=== PATIENT | male | born 1985 | race Caucasian/White ===

== ENCOUNTER → 2023-11-11 09:20 | Outpatient (CLI) | payer MEDICAID, SELFPAY ==
[2023-11-11 11:26] LABS: Hematocrit 43.5 % (41-53); Hemoglobin 14.7 g/dL (13.5-17.5); Mean Corpuscular HGB Conc 33.7 % (30-36); Mean Corpuscular Volume 80.3 fL (80-100); Platelet Count 300 X10^3/uL (150-400); Red Blood Cell Count 5.43 X10^6/uL (4.5-5.9); Red Cell Distribution Width 14.4 % (11.6-14.8); White Blood Cell Count 9.9 X10^3/uL (4.5-11.0)
[2023-11-11 11:27] LABS: Alanine Aminotransferase 28 IU/L (<50); Albumin 4.9 g/dL (3.5-5.0); Albumin Globulin Ratio 1.8 (1.0-2.8); Alkaline Phosphatase 94 U/L (38-126); Aspartate Aminotransferase 28 IU/L (17-59); Bilirubin Total 0.9 mg/dL (0.2-1.3); Blood Urea Nitrogen 19 mg/dL (9-20); Calcium 9.8 mg/dL (8.4-10.2); Carbon Dioxide 27 mmol/L (22-32); Chloride 106 mmol/L (98-107); Cholesterol 179 mg/dL (140-199); Estimated Glomerular Filt Rate > 60 mL/min (>60); Globulin 2.7 g/dL (1.7-4.1); Glucose 93 mg/dL (70-100); HDL Cholesterol 37 mg/dL (40-60); HEMOLYSIS < 15 (0-50); LDL Cholesterol Calculated 115 mg/dL (<100); Sodium 139 mmol/L (137-145); Total Protein 7.6 g/dL (6.3-8.2); Triglycerides 135 mg/dL (35-150)
[2023-11-11 11:28] LABS: Potassium 4.5 mmol/L (3.4-5.1)
[2023-11-11 11:58] LABS: TSH w/ Reflex to FT4 1.41 uIU/mL (0.47-4.68)
[2023-11-22 15:06] LABS: Porphyrins, Total Plasma <0.1 ug/dL (0.0-1.0)
== END ==
LOC: LAB 09:22
PROVIDERS: PCP Internal Medicine; Referring Provider Internal Medicine; Visit Provider Internal Medicine
DX: E80.20 Unspecified porphyria (principal)
CPT/HCPCS: 36415; 80053; 80061; 84110; 84311; 84443; 85027